=== PATIENT | female | born 1970 | race Caucasian/White ===

== ENCOUNTER → 2024-07-31 | Day surgery (SDC) | payer OTHER ==
[~2024-07-31] MED LIST: BENADRYL25 M1 PO; COQ-10100 MG PO; HYOSCYAMINE SULFATE 0.5 MG/ML INJ ONE; LIDOCAINE HCL 2% LOCAL INJ 5 ML SDV VIAL INJ ONE; LORATADINE10 MG PO; MULTI-VITAMIN1 EACH PO; PROPOFOL IV EMULSION 10 MG/ML 20 ML VIAL ONE; SELENIUM200 MC2 PO; TURMERIC500 M1 PO; VITAMIN B121000 MCG PO
[2024-07-31] MEDS: LACTATED RINGER'S 1,000 ML ONE (12:53)
[2024-07-31 15:25] VITALS: BP 120/98; PULSE 91; RESP 18; TEMP 97.4; O2SAT 100
== END | disposition home or self-care (01) ==
LOC: OR 12:13
PROVIDERS: ATTEND Internal Medicine Gastroenterology
DX: Z12.11 Encounter for screening for malignant neoplasm of colon (principal); D12.2 Benign neoplasm of ascending colon; D12.5 Benign neoplasm of sigmoid colon; K64.8 Other hemorrhoids; I10 Essential (primary) hypertension; J30.1 Allergic rhinitis due to pollen; Z01.810 Encounter for preprocedural cardiovascular examination; Z79.899 Other long term (current) drug therapy
CPT/HCPCS: 45385; 93005; J1980; J2003; J2704; J7121

== ENCOUNTER → 2024-09-22 | Outpatient (REF) | payer OTHER ==
[~2024-09-22] MED LIST changes: -HYOSCYAMINE SULFATE 0.5 MG/ML INJ ONE; +IOPAMIDOL 370 MG/ML 100 ML INFUS..BTL INJ ONE; -LIDOCAINE HCL 2% LOCAL INJ 5 ML SDV VIAL INJ ONE; -PROPOFOL IV EMULSION 10 MG/ML 20 ML VIAL ONE
== END ==
LOC: CT 15:21
PROVIDERS: ATTEND Nurse Practitioner
DX: R10.10 Upper abdominal pain, unspecified (principal); Z80.0 Family history of malignant neoplasm of digestive organs
CPT/HCPCS: 74160; Q9967